=== PATIENT | male | born 1995 | race Caucasian/White ===

== ENCOUNTER 2019-11-11 17:55 | Emergency (ER) | payer OTHER ==
[~2019-11-11] VITALS: Ht 175.3 cm; Wt 92.1 kg
[2019-11-11 18:17] VITALS: Ht 175.3 cm; Wt 92.1 kg
[2019-11-11 19:01] VITALS: BP 143/91
== END 2019-11-11 19:01 | disposition home or self-care (01) ==
LOC: ED 17:55
DX: K59.00 Constipation, unspecified (principal)